=== PATIENT | male | born 1955 | race Caucasian/White ===

== ENCOUNTER 2017-06-19 18:41 | Emergency (ER) | payer OTHER ==
[~2017-06-19] VITALS: Ht 162.6 cm; Wt 85.2 kg
[~2017-06-19 18:41] MED LIST: ALLO300T46 PO; AMLO-145 PO; LEVO50TA74 PO
[2017-06-19 19:00] VITALS: Ht 162.6 cm; Wt 85.2 kg
[2017-06-19] MEDS ORDERED: ONDANSETRON (ODT) 4 MG TAB ODT STA (20:28)
[2017-06-19] MEDS ORDERED: MECLIZINE 12.5 MG TAB PO ONE (20:30)
[2017-06-19] MEDS ORDERED: MECL12.574 PO (21:24)
[2017-06-19] MEDS ORDERED: ONDA4TAB14 PO (21:24)
--- NOTE | 2017-06-19 21:33 | ERD ---
ER Documentation Chief Complaint Chief Complaint right ear pain, dizziness, n/v x 4 days HPI Patient is a 62-year-old male past medical history of hypertension and RA who presents the ED for concerns of right ear pain 4 days. Patient states that this evening he started to feel dizzy. Patient describes his dizziness to be feeling "wobbly" when walking only. Patient states that the dizziness comes and goes, ever he does not have any dizziness at this time. States that the dizziness lasts less than 1 minute. Denies any falls or trauma. Patient denies any headache, blurry vision, pain, shortness of breath, left upper extremity pain or loss consciousness. Patient does admit to nausea and one episode of vomiting earlier today. Patient denies any abdominal pain. Patient has any recent travel or sick contacts. ROS All systems reviewed and are negative except as per history of present illness. Medications Home Meds Active Scripts Ondansetron (Ondansetron Odt) 4 Mg Tab.rapdis, 4 MG PO Q6H Y for NAUSEA AND/OR VOMITING, #10 TAB Prov:GILBERT NAVA PA-C 06/19/17 Meclizine Hcl* (Antivert*) 12.5 Mg Tab, 12.5 MG PO Q6H Y for DIZZINESS, #20 TAB Prov:GILBERT NAVA PA-C 06/19/17 Reported Medications Levothyroxine Sodium* (Levothyroxine Sodium*) 50 Mcg Tablet, 50 MCG PO AC BREAKFAST, TAB 02/15/14 Allopurinol* (Zyloprim*) 300 Mg Tablet, 300 MG PO DAILY, TAB 02/15/14 Amlodipine Besylate* (Amlodipine Besylate*) 5 Mg Tablet, 5 MG PO DAILY 11/29/13 Allergies Allergies: Coded Allergies: No Known Allergy (Unverified , 02/15/14) PMhx/Soc History of Surgery: Yes (HERNIA, RIGHT WRIST SX, CIRCUMCISION) Hx Miscellaneous Medical Probl: Yes (RHEMATOID ARTHRITIS; HTN) Hx Alcohol Use: No Hx Substance Use: No Hx Tobacco Use: No Smoking Status: Never smoker FmHx Family History: No diabetes Physical Exam Vitals Vital Signs Date Time Temp Pulse Resp B/P Pulse Ox O2 Delivery O2 Flow Rate FiO2 06/19/17 21:56 97.6 60 18 126/77 98 06/19/17 19:00 98.0 66 17 157/80 97 Physical Exam GENERAL: Well-developed, well-nourished male. Appears in no acute distress. Speaking in full sentences. HEAD: Normocephalic, atraumatic. No deformities or ecchymosis. EYE: Pupils equal, round, and reactive to light. EOMs intact. No conjunctival erythema. No eye discharge. ENT: External ear without any masses or tenderness. Right auditory canal shows green leaf-like object. Unable to visualize tympanic membrane. Left TM visualized, non-erythematous, non-bulging. Nasal mucosa pink with no discharge. Oropharynx is pink without any tonsillar erythema or exudates. No uvula deviation. No kissing tonsils. NECK: Supple. No meningismus. Normal ROM of the neck. LUNG: Clear to auscultation bilaterally. No rhonchi, wheezing, rales or coarse breath sounds. HEART: Regular rate and rhythm. No murmurs, rubs or gallops. BACK: No midline tenderness. EXTREMITIES: Equal pulses bilaterally. No peripheral clubbing, cyanosis or edema. No unilateral leg swelling. NEUROLOGIC: Alert and oriented x3, cooperative. Mood and affect appropriate to situation. Cranial nerves II through XII are grossly intact. Normal speech. Motor exam: 5/5 strength in upper and lower extremities. Sensory exam: Sensation intact to light touch on all four extremities. Cerebellar function exam:. No dysmetria on [id number] test. Steady gait. No pronator drift. SKIN: Normal color. Warm and dry. No rashes or lesions. Results 24 hrs Current Medications Medications (Trade) Dose Ordered Sig/Arabella Route PRN Reason Start Time Stop Time Status Last Admin Dose Admin Meclizine HCl (Antivert) 12.5 mg ONCE ONCE PO 06/19/17 20:30 06/19/17 20:31 DC 06/19/17 20:33 Ondansetron HCl (Zofran Odt) 4 mg ONCE STAT ODT 06/19/17 20:28 06/19/17 20:30 DC 06/19/17 20:33 Procedures/MDM ED COURSE: The patient was stable throughout ED course. I kept the patient and/or family informed of laboratory and diagnostic imaging results throughout the ED course. MEDICATIONS GIVEN: Meclizine, Zofran Patient tolerated medication well with no adverse reactions. Patient reported improvement in pain. MEDICAL DECISION MAKING: Patient is a 62-year-old male past medical history of hypertension and RA who presents the ED for concerns of right ear pain 4 days. Patient also reports intermittent episodes of dizziness which started this evening. Patient denies any dizziness at this time. Vital signs were reviewed. Patient was afebrile. Patient was not hypoxic. ENT exam revealed a green leaf like foreign body in the patient's right auditory canal. Foreign body was removed without any difficulty. TM was visualized, nonerythematous, nonbulging. TM was intact. Full neuro exam was normal. Patient was given Meclizine and Zofran. Patient reported improvement in symptoms. Patient's dizziness which occurred this evening was likely due to the foreign body that was present in the patient's here. Patient initially forgot that the foreign body was there until my examination. I advised the patient to avoid placing objects in his ear as this can affect his balance. Patient was also advised to follow-up with an ENT specialist. Referral information provided. At this time, patient presentation is most consistent with right ear foreign body, removed and vertigo. Low suspicion for intracranial hemorrhage, cerebral infarct, intracranial mass, retained ear foreign body, acute otitis media, tympanic membrane rupture. PRESCRIPTIONS: Meclizine Zofran DISCHARGE: At this time, patient is stable for discharge and outpatient management. Referral information for ENT given. I have instructed the patient to follow-up with his/her primary care physician in 1-2 days. If symptoms persist, patient may need to see a specialist for further examinations and testing. I have instructed the patient to promptly return to the ER at any time for any new or worsening symptoms including increased increased pain, fever, nausea, vomiting, numbness, weakness, slurred speech, LOC. The patient and/or family expressed understanding of and agreement with this plan. All questions were answered. Home care instructions were provided. Patients blood pressure was elevated (>120/80) but appears stable without evidence of hypertensive emergency, hypertensive urgency or end-organ failure. I had discussion with the patient about the risks of hypertension. I have advised the patient to follow up with his/her primary care physician for outpatient monitoring and treatment for hypertension in 2-3 days. I have instructed the patient to return to the ER for any new or worsening symptoms including chest pain, shortness of breath, headache, blurred vision, confusion, nausea, vomiting or LOC. Disclaimer: Inadvertent spelling and grammatical errors are likely due to EHR/ dictation software use and do not reflect on the overall quality of patient care. Also, please note that the electronic time recorded on this note does not necessarily reflect the actual time of the patient encounter. Departure Diagnosis: Primary Impression: Foreign body of ear, right Encounter type: initial encounter Qualified Code: T16.1XXA - Foreign body of right ear, initial encounter Additional Impression: Vertigo Condition: Stable Patient Instructions: Inner Ear Problems: Causes of Dizziness (Vertigo) Referrals: MAULIK ELLIOTT MD,ASHLEY JANE,AMANDEEP SMYTH,JASON LABOY,BRYANT CARCAMO M.D., MD [facility] YOU HAVE RECEIVED A MEDICAL SCREENING EXAM AND THE RESULTS INDICATE THAT YOU DO NOT HAVE A CONDITION THAT REQUIRES URGENT TREATMENT IN THE EMERGENCY DEPARTMENT. FURTHER EVALUATION AND TREATMENT OF YOUR CONDITION CAN WAIT UNTIL YOU ARE SEEN IN YOUR DOCTORS OFFICE WITHIN THE NEXT 1-2 DAYS. IT IS YOUR RESPONSIBILITY TO MAKE AN APPOINTMENT FOR FOLOW-UP CARE. IF YOU HAVE A PRIMARY DOCTOR --you should call your primary doctor and schedule an appointment IF YOU DO NOT HAVE A PRIMARY DOCTOR YOU CAN CALL OUR PHYSICIAN REFERRAL HOTLINE AT IF YOU CAN NOT AFFORD TO SEE A PHYSICIAN YOU CAN CHOSE FROM THE FOLLOWING [facility] [address] [facility]. [facility] [address] [facility]. [facility] [address] [facility] [address] [facility] [address] [facility]. [facility] [address] [facility] YOU HAVE RECEIVED A MEDICAL SCREENING EXAM AND THE RESULTS INDICATE THAT YOU DO NOT HAVE A CONDITION THAT REQUIRES URGENT TREATMENT IN THE EMERGENCY DEPARTMENT. FURTHER EVALUATION AND TREATMENT OF YOUR CONDITION CAN WAIT UNTIL YOU ARE SEEN IN YOUR DOCTORS OFFICE WITHIN THE NEXT 1-2 DAYS. IT IS YOUR RESPONSIBILITY TO MAKE AN APPOINTMENT FOR FOLOW-UP CARE. IF YOU HAVE A PRIMARY DOCTOR --you should call your primary doctor and schedule and appointment IF YOU DO NOT HAVE A PRIMARY DOCTOR YOU CAN CALL OUR PHYSICIAN REFERRAL HOTLINE AT . IF YOU CAN NOT AFFORD TO SEE A PHYSICIAN YOU CAN CHOSE FROM THE FOLLOWING [facility] INSTITUTIONS: [facility] [address] [place] [address] [facility] [address] [place] [address] [facility] [address] [place] [address] Additional Instructions: Call your primary care doctor TOMORROW for an appointment during the next 1-2 days.See the doctor sooner or return here if your condition worsens before your appointment time. Follow up with wearing apparel presser. GILBERT NAVA PA-C Jun 19, 2017 21:33
[2017-06-19 21:56] VITALS: BP 126/77; PULSE 60; RESP 18; TEMP 97.6
== END 2017-06-19 21:58 | disposition home or self-care (01) ==
LOC: FTE 18:41
DX: T16.1XXA Foreign body in right ear, initial encounter (principal); I10 Essential (primary) hypertension; X58.XXXA Exposure to other specified factors, initial encounter; Y92.9 Unspecified place or not applicable
CPT/HCPCS: 99283